=== PATIENT | male | born 2000 | race Caucasian/White ===

== ENCOUNTER 2020-09-15 21:05 | Emergency (ER) | payer BC ==
[~2020-09-15] VITALS: Ht 170.2 cm; Wt 63.4 kg
[2020-09-15 21:07] VITALS: BP 144/84
--- NOTE | 2020-09-15 21:20 | NUR ---
MD to bedside to eval. hinkle set up
--- NOTE | 2020-09-15 21:20 | NUR ---
pt walked to room. a&ox4. pt has lac to lower right extremity. bleeding controlled and no active bleeding.
[2020-09-15] MEDS ORDERED: LIDOCAINE-MPF 2% ,5ML ONE (21:29)
[2020-09-15] MEDS ORDERED: LIDOCAINE 2%, 20ML SQ ONE (21:30)
--- NOTE | 2020-09-15 21:40 | NUR ---
lac cleaned up with 1 liter NS, and pt tolerated well. no active bleeding, edges close, and lac approx 1.5 inches in length with small tissue involvement. cms intact to foot.
--- NOTE | 2020-09-15 21:55 | NUR ---
lac cleansed and steri strips x3 placed with benzoin skin glue and pt tolerated well. no bleeding, edges approximated, and wound dressed with 4x4 and a kerlix. pt tolerated well and d/c papers given, and f/u instructions given to pt with instructions to watch out for infections and the sign and symptoms of infection and pt v/u.
--- NOTE | 2020-09-15 22:01 | NUR ---
f/u and d/c instructions given to pt and he v/u. and d/c'd ambulatory
== END 2020-09-15 22:03 | disposition home or self-care (01) ==
LOC: ED 21:45
DX: S81.811A Laceration without foreign body, right lower leg, initial encounter (principal); X58.XXXA Exposure to other specified factors, initial encounter; Y93.89 Activity, other specified; Y92.328 Other athletic field as the place of occurrence of the external cause; Y99.8 Other external cause status
CPT/HCPCS: 99282